=== PATIENT | female | born 1955 | race Caucasian/White ===

== ENCOUNTER 2018-12-17 07:20 | Day surgery (SDC) | payer OTHER ==
[~2018-12-17] VITALS: Ht 157 cm; Wt 93.7 kg
[~2018-12-17 07:20] MED LIST: FISH1000 PO; FOLATE PO; PRED1; Trexall15 MG PO; VITAMIN D5000 UNIT PO
[2018-12-17] MEDS ORDERED: HYDSUL200 PO (07:56)
--- NOTE | 2018-12-17 08:17 | NUR ---
Ambulatory in Day Surgery History, Chart, Medications and Allergies reviewed before start of procedure.Patient confirms NPO status and agrees with scheduled surgery. Patient states colon prep results clear.Lungs clear T/O to Auscultation. Patient States Post-Procedure ride home has been arranged WITH , HE DROPPED PATIENT OFF AND WILL RETURN
--- NOTE | 2018-12-17 08:48 | NUR ---
12/17/18 0848 hCetan Willingham PATIENT DETERMINED TO BE ASA APPROPRIATE FOR PROPOFOL SEDATION PRIOR TO START OF PROCEDURE BY . 3-LEAD EKG REVIEWED WITH PHYSICIAN PRIOR TO START OF PROCEDURE.PATIENT CONFIRMS NPO STATUS AND AGREES WITH SCHEDULED PROCEDURE.History, Chart, Medications and Allergies reviewed before start of procedure.MONITOR INTACT WITH CONTINUOUS PULSE OXIMETRY AND INTERMITTENT BP.O2 VIA N/C INTACT THROUGHOUT SEDATION/PROCEDURE.
--- NOTE | 2018-12-17 09:23 | NUR ---
PT AWAKE, CONVERSING WITH NURSES UPON RETURN TO [facility]. NO C/O PAIN OR DISCOMFORT. MD TO BEDSIDE TO REVIEW FINDINGS OF PROCEDURE.
--- NOTE | 2018-12-17 09:44 | NUR ---
TO BEDSIDE. REVIEWED ALL DISCHARGE INSTRUCTIONS. PATIENT AND VERBALIZE UNDERSTANDING OF ALL. PT TO BEDSIDE TO DRESS.
--- NOTE | 2018-12-17 09:50 | NUR ---
IV DC TIP INTACT. PT DC HOME VIA WC
== END 2018-12-17 22:53 | disposition home or self-care (01) ==
LOC: ORSCMMR 07:20 → ORD 08:30 → ORSCMMR 08:30
PROVIDERS: Internal Medicine Gastroenterology
PROC: 0DBH8ZX Excision of Cecum, Via Natural or Artificial Opening Endoscopic, Diagnostic (ICD-10-PCS; principal; 2018-12-17 08:30)
PROC: 0DBP8ZX Excision of Rectum, Via Natural or Artificial Opening Endoscopic, Diagnostic (ICD-10-PCS; principal; 2018-12-17 08:30)
DX: Z12.11 Encounter for screening for malignant neoplasm of colon (principal); Z86.010 Personal history of colon polyps; C20 Malignant neoplasm of rectum; D12.0 Benign neoplasm of cecum; K57.30 Diverticulosis of large intestine without perforation or abscess without bleeding; Z83.71 Family history of colonic polyps; E66.01 Morbid (severe) obesity due to excess calories; Z68.39 Body mass index [BMI] 39.0-39.9, adult; Z79.899 Other long term (current) drug therapy
CPT/HCPCS: 88305; J2704; J7120

== ENCOUNTER 2019-03-31 07:00 | Day surgery (SDC) | payer OTHER ==
[~2019-03-31] VITALS: Ht 157.5 cm; Wt 94.5 kg
[~2019-03-31 07:00] MED LIST changes: +HYDSUL200 PO
--- NOTE | 2019-03-31 07:32 | NUR ---
PT ADMITTED TO [facility]. AGREES WITH PLANNED PROCEDURE. STATES SHE TOLERATED BOWEL PREP AND LAST BM CLEAR.
--- NOTE | 2019-03-31 07:41 | NUR ---
REPORT TO NYA COLORADO RN.
--- NOTE | 2019-03-31 08:13 | NUR ---
03/31/19 0813 Lisa Villela History, Chart, Medications and Allergies reviewed before start of procedure. PATIENT CONFIRMS NPO STATUS AND AGREES WITH SCHEDULED PROCEDURE. MONITOR INTACT WITH CONTINUOUS PULSE OXIMETRY AND INTERMITTENT BP. O2 VIA N/C INTACT THROUGHOUT SEDATION/PROCEDURE. 3-LEAD EKG REVIEWED WITH PHYSICIAN PRIOR TO START OF PROCEDURE. PATIENT DETERMINED TO BE ASA APPROPRIATE FOR PROPOFOL SEDATION PRIOR TO START OF PROCEDURE BY DR. ALDANA.
== END 2019-03-31 09:05 | disposition home or self-care (01) ==
LOC: ORSCMMR 07:00 → ORD 08:00 → ORSCMMR 08:00
PROVIDERS: Internal Medicine Gastroenterology
PROC: 0DJD8ZZ Inspection of Lower Intestinal Tract, Via Natural or Artificial Opening Endoscopic (ICD-10-PCS; principal; 2019-03-31 08:00)
DX: Z85.048 Personal history of other malignant neoplasm of rectum, rectosigmoid junction, and anus (principal); K57.30 Diverticulosis of large intestine without perforation or abscess without bleeding; Z79.899 Other long term (current) drug therapy
CPT/HCPCS: J2704; J7120

== ENCOUNTER → 2019-10-22 | Outpatient (CLI) | payer OTHER ==
[2019-10-26 16:10] LABS: HPV 16 Positive (Negative); HPV 18 Negative (Negative); HPV OTHER HR TYPES Negative (Negative)
== END | disposition home or self-care (01) ==
LOC: EDSTATUS 06:16 → LAB SHORT 10:43 → LAB UCHC 10:43
PROVIDERS: Internal Medicine
DX: Z01.419 Encounter for gynecological examination (general) (routine) without abnormal findings (principal)
CPT/HCPCS: 87624; G0123

== ENCOUNTER → 2020-11-24 | Outpatient (CLI) | payer OTHER ==
[2020-11-27 13:08] LABS: HPV 16 Negative (Negative); HPV 18 Negative (Negative); HPV OTHER HR TYPES Negative (Negative)
== END | disposition home or self-care (01) ==
LOC: LAB SHORT 15:05 → LAB 15:05
PROVIDERS: Internal Medicine
DX: Z01.419 Encounter for gynecological examination (general) (routine) without abnormal findings (principal); R87.810 Cervical high risk human papillomavirus (HPV) DNA test positive
CPT/HCPCS: 87624; G0123

== ENCOUNTER 2022-06-10 08:21 | Day surgery (SDC) | payer MEDICARE ==
[~2022-06-10] VITALS: Ht 156 cm; Wt 94.4 kg
--- NOTE | 2022-06-10 09:15 | NUR ---
Ambulatory in Day Surgery History, Chart, Medications and Allergies reviewed before start of procedure. Pre-Op teaching done. Pt verbalizes understanding. Patient States Post-Procedure ride home has been arranged.
--- NOTE | 2022-06-10 09:49 | NUR ---
06/10/22 0949 Buddy Echevarria HISTORY, CHART, MEDICATIONS AND ALLERGIES REVIEWED BEFORE START OF PROCEDURE. PATIENT CONFIRMS NPO STATUS AND AGREES WITH SCHEDULED PROCEDURE. 3-LEAD EKG REVIEWED WITH PHYSICIAN PRIOR TO START OF PROCEDURE. MONITOR INTACT WITH CONTINUOUS PULSE OXIMETRY,CAPNOGRAPHY, 3-LEAD EKG, INTERMITTENT BP. SUPPLEMENTAL O2 TO BE TITRATED THROUGHOUT PROCEDURE TO MAINTAIN O2 SATURATION ABOVE 90%. PATIENT DETERMINED TO BE ASA APPROPRIATE FOR PROPOFOL SEDATION PRIOR TO START OF PROCEDURE BY DR. ALDANA.
--- NOTE | 2022-06-10 10:28 | NUR ---
PT TOLERATED WATER WELL, NO PAIN, Discharge instructions reviewed with patient. Patient verbalizes understanding. Copy given to patient to take home. Discharged via wheelchair to private car for ride home.
== END 2022-06-10 10:25 | disposition home or self-care (01) ==
LOC: ORSCMMR 08:21 → ORD 09:00 → ORSCMMR 09:00
PROVIDERS: Internal Medicine Gastroenterology
PROC: 0DBL8ZX Excision of Transverse Colon, Via Natural or Artificial Opening Endoscopic, Diagnostic (ICD-10-PCS; principal; 2022-06-10 09:00)
DX: Z12.11 Encounter for screening for malignant neoplasm of colon (principal); Z85.048 Personal history of other malignant neoplasm of rectum, rectosigmoid junction, and anus; Z86.010 Personal history of colon polyps; D12.3 Benign neoplasm of transverse colon; K64.8 Other hemorrhoids; K57.30 Diverticulosis of large intestine without perforation or abscess without bleeding; M06.9 Rheumatoid arthritis, unspecified; E66.9 Obesity, unspecified; Z68.39 Body mass index [BMI] 39.0-39.9, adult; Z79.899 Other long term (current) drug therapy
CPT/HCPCS: 88305; J2704; J7120

== ENCOUNTER 2025-02-04 06:16 | Day surgery (SDC) | payer MEDICARE, BC ==
[~2025-02-04] VITALS: Ht 208.3 cm; Wt 86.5 kg
[2025-02-04] MEDS ORDERED: CeFAZolin Sodium 2,000 MG VIAL ONE (06:24)
[2025-02-04] MEDS ORDERED: Hair, Skin & N1 EACH PO (06:37)
[2025-02-04] MEDS ORDERED: FOLI1 PO (06:38)
[2025-02-04] MEDS ORDERED: Bupivacaine 0.5% W/EPI 1:200000 SDV 30 ML Vial ONE (06:54)
[2025-02-04] MEDS ORDERED: FentaNYL Citrate 50 MCG/ML 2 ML Injection ONE (07:09)
[2025-02-04] MEDS ORDERED: Dexamethasone Sod Phos 10 MG/ML 1ML VIAL ONE (07:28)
[2025-02-04] MEDS ORDERED: Ondansetron HCl 2 MG / ML 2ML Vial ONE (07:28)
--- NOTE | 2025-02-04 08:32 | NUR ---
02/04/25 0832 Kenia Devlin RN ASSISTED PT TO RECLINER. VSS. PT DENIES PAIN/DIZZINESS/NAUSEA AT THIS TIME.
[2025-02-04 09:05] VITALS: BP 112/74
== END 2025-02-04 09:00 | disposition home or self-care (01) ==
LOC: ORSCSDS 06:16
PROVIDERS: Podiatrist Foot & Ankle Surgery
PROC: 0JBN0ZZ Excision of Right Lower Leg Subcutaneous Tissue and Fascia, Open Approach (ICD-10-PCS; principal; 2025-02-04 07:30)
DX: M06.371 Rheumatoid nodule, right ankle and foot (principal); E66.9 Obesity, unspecified; Z68.34 Body mass index [BMI] 34.0-34.9, adult; Z79.899 Other long term (current) drug therapy; Z87.891 Personal history of nicotine dependence; M06.9 Rheumatoid arthritis, unspecified
CPT/HCPCS: 88305; A6253; J0690; J1100; J2405; J2704; J3010; J7120